=== PATIENT | male | born 1950 | race Caucasian/White ===

== ENCOUNTER 2019-06-19 17:27 | Emergency (ER) | payer MEDICARE ==
[~2019-06-19] VITALS: Ht 172.7 cm; Wt 99.8 kg
[2019-06-19] MEDS ORDERED: Bactrim Ds Tab1 EACH PO (18:27)
[2019-06-19] MEDS ORDERED: CEPH500 PO (18:27)
[2019-06-19] MEDS ORDERED: Norco 5-325 Ta1 EACH PO (18:28)
== END 2019-06-19 18:39 | disposition home or self-care (01) ==
LOC: ER 17:27
DX: L03.317 Cellulitis of buttock (principal); L02.31 Cutaneous abscess of buttock
CPT/HCPCS: 96372; 99283-25; J1885